=== PATIENT | male | born 1980 | race African-American/Black ===

== ENCOUNTER 2017-10-30 01:02 | Emergency (ER) | payer MEDICARE ==
[2016-02-11 10:39] VITALS: BMI 26.3
[~2017-10-30 01:02] MED LIST: ALDACTONE25 MG PO; BACTRIM DS TABL1 TAB; BAYER CHEWABLE81 MG PO; BRILINTA90 MG PO; CATAPRES0.2 MG PO; CATAPRES0.3 MG PO; CORDARONE200 MG PO; COUMADIN10 MG PO; COUMADIN5 MG PO; CYCLOBENZAPRINE10 MG PO; HYDRALAZINE HC100 MG PO; HYDRALAZINE HCL50 MG PO; HYDROCODONE-APA1 TAB PO; LASIX80 MG PO; LISINOPRIL10 MG PO; LOVENOX30 MG/0.3 SC; LOVENOX40 MG/0.4 SC; NORCO 7.5/325 T1 TA1; NORMODYNE / TR100 MG PO; NORMODYNE / TR200 MG PO; NORMODYNE / TR300 MG PO; PHOSLO667 MG PO; PROTONIX I40 MG/VIAL PO; TRANDATE100 MG PO; VIAGRA100 MG PO; XANAX0.5 MG PO
[2017-10-30 01:51] LABS: HEMATOCRIT 36.2 % (42.0-54.0); HEMOGLOBIN 12.3 g/dL (13.5-17.5); MCH 31.2 pg (26.0-34.0); MCV 91.9 fL (80.0-100.0); MEAN PLATELET VOLUME 10.6 fL (7.4-10.4); PLATELET COUNT 152 10x3/uL (130-400); RBC 3.94 10x6/uL (4.20-6.10); RDW 16.6 % (11.5-14.5); WBC 4.4 10x3/uL (4.8-10.8)
[2017-10-30 01:59] LABS: ALBUMIN 3.4 g/dL (3.4-5.0); ANION GAP 21.7 mmol/L (8-16); BILIRUBIN - TOTAL 1.1 mg/dL (0.2-1.3); CALCIUM 8.1 mg/dL (8.5-10.1); CARBON DIOXIDE 22.9 mmol/L (21.0-32.0); CREATININE - SERUM 10.8 mg/dL (0.6-1.3); POTASSIUM - SERUM 4.6 mmol/L (3.5-5.1); PROTEIN - SERUM 7.8 g/dL (6.4-8.2)
[2017-10-30 02:00] LABS: APPEARANCE HAZY (CLEAR); BILIRUBIN NEGATIVE (NEGATIVE); COLOR YELLOW (YELLOW); GLUCOSE NEGATIVE (NEGATIVE); KETONE NEGATIVE (NEGATIVE); NITRITE NEGATIVE (NEGATIVE); PROTEIN 3+ mg/dL (NEGATIVE); SPECIFIC GRAVITY 1.015 (1.005-1.020); UROBILINOGEN NORMAL (NORMAL)
[2017-10-30 02:01] LABS: BACTERIA MODERATE /hpf (NONE SEEN); EPITHELIAL CELLS 0-5 /hpf (0-5); RED CELLS - URINE 0-5 /hpf (0-5)
== END 2017-10-30 02:33 | disposition home or self-care (01) ==
LOC: D.ER 01:02
PROVIDERS: Family Medicine
DX: J11.1 Influenza due to unidentified influenza virus with other respiratory manifestations (principal); R50.9 Fever, unspecified; R06.02 Shortness of breath; M79.1 Myalgia; R53.83 Other fatigue; R51 Headache; F17.200 Nicotine dependence, unspecified, uncomplicated; I48.91 Unspecified atrial fibrillation

== ENCOUNTER 2018-04-09 11:36 | Inpatient (IN) | payer MEDICARE ==
[~2018-04-09] VITALS: Ht 188 cm; Wt 89.6 kg
--- NOTE | ~2018-04-09 | EC ---
PATIENT:ELIZABETH FIELDS DATE OF SERVICE: 04/09/18 SEX: M MEDICAL RECORD: [id number] DATE OF : [birth year] LOCATION:[place] [address] AGE OF PATIENT: 37 ADMISSION DATE: 04/09/18 REFERRING PHYSICIAN: INTERPRETING PHYSICIAN: SHERIF BUSH MD ECHOCARDIOGRAM REPORT ECHO CHARGES 4 ECHO COMPLETE Date: 04/10 CLINICAL DIAGNOSIS: AVR ECHOCARDIOGRAPHIC MEASUREMENTS (adult normal given) AC root (d.<3.7cm) 4.1 cm LV Septum d (<1.2 cm> 2.0 cm Valve Excursion 1.4 cm LV Septum (systole) 2.8 cm Left Atria (s.<4.0cm> 5.2 cm LVPW d(<1.2cm) 2.3 cm RV (d.<2.3cm) 3.4 cm LVPW (sytole) 3.1 cm LV diastole(<5.6CM) 4.8 cm MV E-F(>70mm/sec) cm LV systole 2.5 cm LVOT Diameter 2.3 cm MV exc.(>10mm) cm Est.ejection fraction (50-75%) % DOPPLER: LVIT cm/sec A cm/sec E 205 cm/sec LA cm/sec RVSP 50.0 mmHg LVOT 100 cm/sec AOP1/2T m/s Asc. Ao 182 cm/sec RVOT 53.0 cm/sec RA cm/sec PA 82.0 cm/sec AV Gradient Peak 13.3 mmHg AV Mean 6.3 mmHg AV Area 2.5 cm MV Gradient Peak 24.1 mmHg MV Mean 6.3 mmHg MV Area cm COMMENTS: Human Relations Professor: Renay DAYOE Jazz Musician: 1 Dr. Bush TAPE# PACS Pericardial Effusion N DATE OF SERVICE: 04/11/2018 PROCEDURE: Echocardiogram. FINDINGS: 1. Left ventricular chamber size is within normal limits. Left ventricular systolic function is normal. Overall ejection fraction estimated at 55%. 2. Left atrium is enlarged at 5.2 cm. Right atrium and right ventricle chamber sizes are severely dilated. 3. Valvular structures: Aortic valve is replaced with a mechanical prosthesis ECHOCARDIOGRAM REPORT [id number] ELIZABETH FIELDS with normal structure and function in this position. The remaining valvular structures have normal structure and motion. 4. Doppler interrogation reveals mild aortic insufficiency, moderate mitral regurgitation, moderate tricuspid regurgitation, no other valvular insufficiency or stenosis and pulmonary systolic pressure is elevated estimated 50 mmHg. 5. No evidence of pericardial effusion or left ventricular thrombus. TRANSINT:[id number] Voice Confirmation ID: [id number] DOCUMENT ID: [id number] SHERIF BUSH MD at 1713 CC: [id number] DICTATION DATE: 04/11/18 1236 FISHING VESSEL CAPTAIN: 04/11/18 1241 ADM IN [place] [address] [place] [address]
--- NOTE | ~2018-04-09 | MORECARE ---
CASE MANAGEMENT DISCHARGE SUMMARY PATIENT: ELIZABETH FIELDS UNIT: [id number] ADM DATE: 04/09/18 AGE: 37 : [birth year] SEX: M ROOM/BED: D.2310 AUTHOR: CASE, DECAL CUTTER PHYSICIAN: REFERRING PHYSICIAN: BEBE HAIR MD DATE OF SERVICE: 04/09/18 Discharge Plan Patient Name: ELIZABETH FIELDS Facility: [facility]:[place] : 1980 Planned Disposition: Anticipated Discharge Date: Discharge Date: Expected LOS: Initial Reviewer: [email or web address] Initial Review Date: 04/09/2018 Generated: 04/15/18 9:21 am Patient Name: ELIZABETH FIELDS Page 20201 All edits/amendments must be made on the electronic document DICTATION DATE: 04/15/18820 EMPLOYMENT OFFICE CLERK: 04/15/18820 RPT#: [id number] DC DATE: STATUS: ADM IN [facility] [address] [place] [address] END OF REPORT
--- NOTE | ~2018-04-09 | OP ---
PATIENT NAME: ELIZABETH FIELDS MEDICAL RECORD: [id number] :[birth year] LOCATION:.[facility] D.2310 ADMISSION DATE:04/09/18 SURGEON: VANCE ROMERO MD DATE OF OPERATION: 04/12/2018 PREOPERATIVE DIAGNOSES: 1. End-stage renal disease, dependence on hemodialysis. 2. Infected draining right forearm PTFE loop AV fistula. 3. Coronary artery as well as severe valvular heart disease. POSTOPERATIVE DIAGNOSES: 1. End-stage renal disease, dependence on hemodialysis. 2. Infected draining right forearm PTFE loop AV fistula. 3. Coronary artery as well as severe valvular heart disease. INTRAOPERATIVE COMPLICATION: Following induction of anesthesia and prepping and draping the patient for surgery, he suffered a cardiac arrest. The operation was terminated at that point before the first incision and the patient was resuscitated in the operating room for about an hour and half before being successfully transferred to ICU and placed on the ventilator. At this point, it is unknown whether the patient will survive much less whether or when he can be returned to the operating room for the procedure we had planned for today. TRANSINT:[id number] Voice Confirmation ID: [id number] DOCUMENT ID: [id number] VANCE ROMERO MD at 1451 CC: [id number] DICTATION DATE: 04/14/18 1117 DAM TENDER: 04/14/18 1155 ADM IN [place] [address] [place] [address]
--- NOTE | ~2018-04-09 | PN ---
PATIENT:ELIZABETH FIELDS MEDICAL RECORD: [id number] LOCATION:D[facility] D.231 ADMISSION DATE: 04/09/18 PROGRESS NOTE DATE OF SERVICE: 04/16/2018 SUBJECTIVE: This is a 37-year-old man who has had a history of a stage IV end-stage renal failure. 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 The patient has not been responsive, but neuromuscular testing did not show any limitation. This indicates no brain . The patient has been having intermittent RVS, atrial fib and SVT, treated with IV beta dimitrios and now with p.o. beta dimitrios. Labs have been drawn and is pending. He does have some low-grade temperature. No mucus secretions. PHYSICAL EXAMINATION: GENERAL: A young man who is in no acute distress, unresponsive. VITAL SIGNS: Temperature 99.9, heart rate of 114, respiratory rate of 20, blood pressure 146/70. SHEENT: Unremarkable. NECK: Supple, no adenopathy. Trachea is midline. CHEST: Clear, symmetric. No crackles or wheezes. HEART: Shows no jugular venous distention, murmur or gallop. ABDOMEN: Benign, without any tenderness. EXTREMITIES: No clubbing, cyanosis or edema. LABORATORY DATA: White count of 7.0, hemoglobin of 9.6 and platelet count was 115,000. Chemistry is remarkable for potassium 5.4, carbon dioxide 28. Estimated GFR is 5. Arterial blood gas: pH of 7.48, pCO2 of 34, pO2 is 114. Chest x-ray shows stable pulmonary vascular congestion. ASSESSMENT: 1. Cardiopulmonary arrest with possible anoxic encephalopathy. No evidence of brain . 2. End-stage renal disease, on dialysis. 3. Anemia secondary to renal disease. DISCUSSION: NEUROPSYCHIATRY: The patient is unresponsive secondary to hypoxic brain injury. No focal signs. CARDIOVASCULAR: The patient has been having tachycardia which may be secondary to a brain injury. PULMONARY/RESPIRATORY: The patient is on ventilator. There is no evidence of aspiration pneumonia. He, however, has some congestion. GASTROINTESTINAL: There is no evidence of GI bleed, ulcers, bleeding. The patient is currently n.p.o. PLAN: 1. Ventilator support. 2. Beta dimitrios control, tachycardia. 3. Continue antibiotics and stop in 5 days if there is no evidence of infection. Do procalcitonin. TRANSINT:[id number] Voice Confirmation ID: [id number] DOCUMENT ID: [id number] PROGRESS NOTE [id number] ELIZABETH FIELDS AUGUSTINE K at 1307 CC: [id number] DICTATION DATE: 04/16/18 1540 STRUCTURAL STEEL IRONWORKER: 04/16/182 DIS IN 04/16/18 [facility] [address] [place] [id number]
--- NOTE | ~2018-04-09 | HEMODYNAMI ---
PATIENT:LEIZABETH FIELDS MEDICAL RECORD: [id number] : 76 LOCATION:[facility] D.2101 ADMISSION DATE: 04/09/18 Generatedon:04/10/201811:28 Patient name: ELIZABETH FIELDS Patient #: [id number] SSN: : 1980 Date of study: 04/10/2018 Page: Of Hemodynamic Procedure Report Patient Data Patient Demographics Procedure consent was obtained First Name: ELIZABETH Gender: Male Last Name: DIAMOND : 1980 [facility] Initial: L Age: 37 year(s) Patient #: [id number] Race: Black Additional ID: [id number] Contact details Address: [address] [place] [address] [address]REET State: [place] City: [place] Zip code: [address] Past Medical History Allergies Allergen Reaction Date Comments Reported Other allergy 08/27/2014 Minoxidil Other allergy 04/10/2018 MINOXIDIL Admission Admission Data Admission Date: 04/09/2018 Admission Time: 11:36 Room #: D.2101 Procedure Procedure Types Cath Procedure Peripheral Cath Diagnostic Procedure Miscellaneous PARACENTESIS WITH GUIDE Procedure Description Procedure Date Procedure Date: 04/10/2018 Procedure Start Time: 10:40 Procedure Staff Name Function Harsh Rockwell MD Performing Physician Harsha Weber RT Monitor Becky Last RT Scrub Ora Pack RN Nurse Procedure Medications Medication Administration Route Dosage Versed I.V. 2 mg Fentanyl I.V. 100 mcg Hemodynamics Rest Pre Cath Intra NCS Post Cath Vital Signs Time Heart Resp SPO2 etCO2 NIBP (mmHg) Rhythm Pain Sedation Rate (ipm) (%) (mmHg) Status Level (bpm) 9:56:09 83 16 97 0 138/100(115) NSR 0 (11) 10(A) , No pain 10:00:23 84 8 96 0 139/107(130) NSR 0 (11) 10(A) , No pain 10:04:38 85 24 94 0 144/109(122) NSR 0 (11) 10(A) , No pain 10:08:52 85 16 97 0 145/102(122) NSR 0 (11) 10(A) , No pain 10:13:09 76 20 93 0 142/106(125) NSR 0 (11) 10(A) , No pain 10:17:23 76 18 93 0 149/115(130) NSR 0 (11) 10(A) , No pain 10:21:42 84 11 95 0 149/109(124) NSR 0 (11) 10(A) , No pain 10:25:58 75 15 96 0 149/103(121) NSR 0 (11) 10(A) , No pain 10:30:11 78 10 97 0 150/110(127) NSR 0 (11) 10(A) , No pain 10:34:30 85 24 99 1.5 147/112(142) NSR 0 (11) 10(A) , No pain 10:38:46 80 12 99 1.5 154/116(133) NSR 0 (11) 10(A) , No pain 10:43:06 79 10 99 0.7 156/123(136) NSR 0 (11) 10(A) , No pain 10:47:24 82 17 98 2.2 146/98(126) NSR 0 (11) 10(A) , No pain 10:51:40 83 18 96 1.5 134/101(130) NSR 0 (11) 10(A) , No pain 10:55:50 83 10 96 1.5 141/105(123) NSR 0 (11) 10(A) , No pain 11:00:04 81 10 96 1.5 137/98(128) NSR 0 (11) 10(A) , No pain 11:04:14 84 9 97 0.7 136/106(118) NSR 0 (11) 10(A) , No pain 11:08:21 80 11 97 1.5 138/100(116) NSR 0 (11) 10(A) , No pain 11:12:33 77 11 97 2.2 133/99(113) NSR 0 (11) 10(A) , No pain 11:16:43 80 11 97 2.2 137/92(121) NSR 0 (11) 10(A) , No pain 11:20:55 86 19 98 2.2 134/100(120) NSR 0 (11) 10(A) , No pain 11:25:05 80 15 99 1.5 144/99(116) NSR 0 (11) 10(A) , No pain Medications Time Medication Route Dose Verified Delivered Reason Notes Effectivene ss by by 10:45:58 Versed I.V. 2 mg Harsh Payan for Moiz Pack RN sedation 10:46:10 Fentanyl I.V. 100 Harsh Payan for [facility] Moiz Pack RN sedation MD Procedure Log Time Note 9:48:00 Harsha Weber RT (R) (CV) sent for patient. Start room use. 9:48:09 Time tracking: Regular hours (M-F 7:00 - 5:00) 9:48:15 Plan of Care:Hemodynamics will remain stable., Cardiac rhythm will remain stable., Comfort level will be maintained., Respiratory function will remain adequate., Patient/ family verbilizes understanding of procedure., Procedure tolerated without complication., Recovers from procedure without complications.. 9:48:20 Patient arrived from Med II to IR. Patient remains on bed/stretcher for procedure. 9:48:22 Correct patient and procedure confirmed by team. 9:48:24 Signed procedure consent form obtained from patient. 9:48:25 ECG and BP/O2 sat monitors applied to patient. 9:48:26 Full Disclosure recording started 9:48:27 - 9:48:31 H&P Date Dictated: 04/10/2018 Within 30 days and on chart.. 9:48:32 Pre-procedure instructions explained to patient. 9:48:32 Pre-op teaching completed and patient verbalized understanding. 9:48:35 Family unavailable. 9:48:36 Patient NPO since Midnight. 9:48:55 Patient allergic to Other allergyMINOXIDIL 9:48:58 Is patient on blood thinner?Yes 9:49:04 ACC The patient was administered the following blood thiners within the last 24 hours: ACCHeparin 9:49:38 HEPARIN TURNED OFF 8-1-18 A/M 9:49:43 Patient diabetic? No. 9:49:45 - 9:49:45 ----Pre-sedation anethsthesia assessment.---- 9:49:49 Previous problem with sedation/anesthesia? No ? 9:49:51 Snore? Yes 9:49:52 Sleep apnea? Yes 9:49:53 Deviated septum? No 9:49:55 Opens mouth fully? Yes 9:49:56 Sticks out tongue? Yes 9:49:58 Airway obstruction? No ? 9:50:01 Dentures? No ? 9:50:22 IV patent on arrival in left hand with 0.9% NaCl at [facility]. 9:50:24 Sharps counted by scrub and verified by R.N. 9:50:24 Alarms reviewed by RRose N. 9:50:28 Right abdomen area was prepped with chlora-prep and draped in sterile fashion 9:55:05 Vital chart was started 10:39:30 Physician arrived 10:39:30 --------ALL STOP TIME OUT------ 10:39:31 Final Timeout: patient, procedure, and site verified with staff and physician. All members of the team are in agreement. 10:39:34 Right abdomen site verified by team. 10:39:41 Sedation plan: IV Moderate Sedation Medication:Versed, Fentanyl 10:40:10 Procedure started. 10:40:15 Local anesthetic to Abdominal area with Lidocaine 1% by Harsh Rockwell MD.INITIAL ACCESS ONLY 10:40:16 [id number] 8FR CATH DRAIN TRAY opened to sterile field. 10:40:17 CONNECTING TUBE FOR DRAINAGE BAG ([id number]) opened to sterile field. 10:45:58 Versed 2 mg I.V. was administered by Ora Ramone RN; for sedation; 10:46:10 Fentanyl 100 mcg I.V. was administered by Ora Pack RN; for sedation; 11:15:53 Procedure ended.(Physican Out) 11:16:30 Tegaderm 4 x 4 ([id number]) opened to sterile field. 11:16:33 Sharps counted by scrub and verified by R.N. 11:16:36 Insertion/operative site no bleeding no hematoma. 11:16:43 Post-op/insertion site Right Abdominal area dressed using a 4 x 4 and Tegaderm. 11:16:50 Post Abdominal area:stable 11:17:13 Post procedure instruction explained to patient.Patient verbalizes understanding. 11:17:22 Procedure and supply charges have been captured, reviewed, submitted an d are correct. 11:27:29 Report given to Med II. 11:27:39 Patient transfered to Med II with Bed. 11:28:02 Vital chart was stopped Device Usage Item Name Manufacture Quantity Catalog Hospital Part Current Mini mal Lot# / Number Charge Number Stock Stock Serial# Code [id number] CareFusion 1 [id number] 8FR CATH DRAIN TRAY CONNECTING TUBE [place] 1 [id number] FOR DRAINAGE Scientific BAG ([id number]) Tegaderm 4 x 4 3M 1 [id number] ([id number]) Signature Audit [place] Stage Time Signature Unsigned Intra-Procedure 04/10/2018 Harsha 11:28:00 AM Gus RT (R) (CV) Signatures Monitor : Harsha Signature : Gus RT Date : Time : [place] [id number] [place] [address]
--- NOTE | ~2018-04-09 | PN ---
PATIENT:ELIZABETH FIELDS MEDICAL RECORD: [id number] LOCATION:[facility] D.231 ADMISSION DATE: 04/09/18 PROGRESS NOTE DATE OF SERVICE: 04/15/2018 HISTORY OF PRESENT ILLNESS: This is a 37-year-old male who has had a history of chronic renal failure. The patient was felt to be overloaded with fluids and the possible start of dialysis was contemplated. The patient was sent for AV shunt. It is unclear what happened, the patient had a cardiopulmonary arrest, had bradycardia, asystole. The patient was successfully resuscitated and brought to the intensive care unit. The patient's mental status has been subpar, though he is breathing about the ventilator. Consideration has been made for possible anoxic encephalopathy. The patient was scheduled for an MRI of the brain today but was noted to have a foreign body in the chest and this was cancelled. Nephrology was called and they ordered a brain flow study with nuclear medicine. He has some movements in the right, possibly reflex. He has also had tachycardia. There is no fever or chills. Family members have been around the bedside today. PHYSICAL EXAMINATION: GENERAL: Reveals a young man who is in no acute distress, resting on the ventilator. VITAL SIGNS: Temperature up to 100.8, heart rate of 104, respiratory rate of 20, blood pressure 128/68 with a saturation of 99%. SHEENT: Unremarkable. Pupils are equal. There is no response to painful stimuli. NECK: Supple. There is no adenopathy. LUNGS: Clear. Symmetric, no wheezes or crackles. HEART: Shows no jugular venous distention. No murmur or gallops. ABDOMEN: Benign, without any tenderness. EXTREMITIES: No clubbing, cyanosis or edema. LABORATORY DATA: Show white count 9.2, hemoglobin 8.8, platelet count is 101,000. Chemistries remarkable for a sodium of 143, potassium 4.4, BUN 57, and creatinine is 10.2. Coronary angiogram showed [id number] congestive heart failure. Airspace disease in the dependent portions of both lungs. Chest x-ray showed improved multifocal airspace disease predominantly in the lower lobes. Small pleural effusion. ASSESSMENT: 1. Jfgka-ma-sfvwuks renal failure stage. 2. Hypovolemia with pulmonary edema, improving. 3. Cardiopulmonary arrest, etiology unknown. This could be from an underlying coronary artery disease secondary to renal failure. 4. Anemia. There is probably chronic secondary to renal failure. NEUROLOGY/PSYCHIATRY: The patient's mental status is nil. The patient was unresponsive. Movements there could be reflex. PROGRESS NOTE [id number] ELIZABETH FIELDS CARDIOVASCULAR: The patient's troponin was elevated. Pulmonary angiogram did not show any coronary artery disease. This could have been due to cardiopulmonary resuscitation or demand ischemia. PULMONARY/RESPIRATORY: The patient is on bronchodilators, on the ventilator. PLAN: 1. Continue bronchodilators. 2. Continue ventilator. 3. Assess the severity of the brain damage from hypoxia. TRANSINT:[id number] Voice Confirmation ID: [id number] DOCUMENT ID: [id number] CIRA PARKER at 1307 CC: [id number] DICTATION DATE: 04/15/181728 PHLEBOTOMIST ASSOCIATE: 04/16/18 0120 DIS IN 04/16/18 [facility] [address] [place] [address]
--- NOTE | ~2018-04-09 | CN ---
PATIENT NAME:ELIZABETH FIELDS MEDICAL RECORD: [id number] : 76 LOCATION:[facility] ADMIT DATE: 04/09/18 ACCOUNT: [id number] CONSULTING PHYSICIAN: LIZZY FOX MD REFERRING PHYSICIAN: BEBE HAIR MD DATE OF CONSULTATION: 04/13/2018 HISTORY OF PRESENT ILLNESS: A 37-year-old gentleman well known to me with a history of coronary artery disease, status post stenting, has a history of valvular heart disease, status post mitral valve repair, aortic valve replacement. Was in the OR, had bradycardia, progression to asystole. Code was called. I was asked to see him in the OR itself. Currently rhythm has been able to be restored with multiple episodes of pressors and atropine. Last echocardiograph study showed normal valve function with normal LV function. PAST MEDICAL HISTORY: Includes; 1. History of hypertension. 2. Hyperlipidemia. 3. Chronic renal insufficiency, on dialysis. 4. Aortic valve disease. 5. Mitral valve disease. 6. Hypertension, difficult to control. ALLERGIES: MINOXIDIL. HOME MEDICATIONS: Typically include clonidine 0.3 t.i.d., labetalol 600 b.i.d., lisinopril 10 every day. SOCIAL HISTORY: Quit smoking a few years back. No illicit drug use. Good family support. REVIEW OF SYSTEMS: Unobtainable at this point. PHYSICAL EXAMINATION: GENERAL: Intubated and sedated. VITAL SIGNS: Heart rate is 90 and irregular, sinus rhythm. Blood pressure 116/72. HEENT: Normocephalic, atraumatic. NECK: No bruits noted. HEART: Distant heart tones, but regular. No obvious gallops. LUNGS: Diminished breath sounds, adequate excursion. ABDOMEN: Soft, nontender. EXTREMITIES: Pulses 2+. No edema. NEUROLOGIC: Unobtainable. IMPRESSION: Not sure if this is a primary bradyarrhythmia or some untoward reaction to anesthetic agents. Pressure and pulse are stable at this point. Continue supportive measures. Further recommendations will be based on clinical course. TRANSINT:[id number] Voice Confirmation ID: [id number] DOCUMENT ID: [id number] CONSULT REPORT [id number] ELIZABETH FIELDS LIZZY FOX MD at 4566 CC: [id number] DICTATION DATE: 04/13/18 1005 SCARF GLUER: 04/13/18 1208 ADM IN [facility] [address] [place] [address]
[2018-04-09] MEDS ORDERED: TUMS X-STR300 MG PO (16:01)
[2018-04-09] MEDS ORDERED: XANAX2 MG PO (16:03)
[2018-04-09 16:10] LABS: BASOPHILS 0.5 % (0-2); EOSINOPHILS 11.3 % (0-7); HEMATOCRIT 30.7 % (42.0-54.0); HEMOGLOBIN 10.4 g/dL (13.5-17.5); IMMATURE GRANULOCYTES 0.2 % (0-5); LYMPHOCYTES 18.3 % (15-50); MCH 31.8 pg (26.0-34.0); MCHC 33.9 g/dL (31.0-37.0); MCV 93.9 fL (80.0-100.0); MEAN PLATELET VOLUME 10.4 fL (7.4-10.4); MONOCYTES 9.2 % (2-11); NEUTROPHILS 60.5 % (40-80); RBC 3.27 10x6/uL (4.20-6.10); WBC 5.7 10x3/uL (4.8-10.8)
[2018-04-09 16:14] LABS: PLATELET COUNT 197 10x3/uL (130-400)
[2018-04-09 16:36] LABS: APTT 32.4 SECONDS (22.8-39.4); INR 1.2 (0.85-1.17); PROTIME 14.8 SECONDS (11.6-15.0)
[2018-04-09 16:48] LABS: ANION GAP 13.4 mmol/L (8-16); BILIRUBIN - DIRECT 0.28 mg/dL (0.00-0.30); BILIRUBIN - INDIRECT 0.42 mg/dL (0.00-1.00); BILIRUBIN - TOTAL 0.7 mg/dL (0.2-1.3); CALCIUM 7.5 mg/dL (8.5-10.1); CARBON DIOXIDE 28.8 mmol/L (21.0-32.0); CREATININE - SERUM 7.7 mg/dL (0.6-1.3); POTASSIUM - SERUM 3.2 mmol/L (3.5-5.1); PROTEIN - SERUM 7.6 g/dL (6.4-8.2)
[2018-04-09 17:59] VITALS: BP 148/83; BMI 27.2
[2018-04-09 20:30] VITALS: BP 135/104
[2018-04-10] VITALS (8 sets, daily range): BP systolic 116–154; BP diastolic 79–104; Ht 188 cm; Wt 89.6 kg
[2018-04-10 06:03] LABS: BASOPHILS 0.6 % (0-2); EOSINOPHILS 12.6 % (0-7); HEMATOCRIT 29.9 % (42.0-54.0); HEMOGLOBIN 10.1 g/dL (13.5-17.5); IMMATURE GRANULOCYTES 0.2 % (0-5); LYMPHOCYTES 19.6 % (15-50); MCH 31.6 pg (26.0-34.0); MCHC 33.8 g/dL (31.0-37.0); MCV 93.4 fL (80.0-100.0); MEAN PLATELET VOLUME 10.2 fL (7.4-10.4); MONOCYTES 11.2 % (2-11); NEUTROPHILS 55.8 % (40-80); PLATELET COUNT 196 10x3/uL (130-400); WBC 5.2 10x3/uL (4.8-10.8)
[2018-04-10 06:30] LABS: % SATURATION 43 % (15-55); IRON 89 ug/dl (35-150); TOTAL IRON BIND CAPACITY 204 ug/dl (260-445); UNSAT IRON BIND CAPACITY 115 ug/dl (150-375)
[2018-04-10 06:38] LABS: ALBUMIN 2.8 g/dL (3.4-5.0); BILIRUBIN - TOTAL 0.67 mg/dL (0.2-1.3); CALCIUM 7.5 mg/dL (8.5-10.1); CARBON DIOXIDE 24.6 mmol/L (21.0-32.0); CHOL - HDL RATIO 1.9 ratio (2.3-4.9); CREATININE - SERUM 8.9 mg/dL (0.6-1.3); LDL-HDL RATIO 0.9 ratio (1.5-3.5); MAGNESIUM - SERUM 2.1 mg/dL (1.8-2.4); PHOSPHOROUS 7.7 mg/dL (2.5-4.9); PRE-ALBUMIN 21.7 mg/dL (18.0-35.7); PROTEIN - SERUM 7.1 g/dL (6.4-8.2)
[2018-04-10 06:39] LABS: ANION GAP 17.2 mmol/L (8-16); POTASSIUM - SERUM 3.8 mmol/L (3.5-5.1)
[2018-04-10 08:48] LABS: INR 1.17 (0.85-1.17); PROTIME 14.4 SECONDS (11.6-15.0)
[2018-04-10 08:49] LABS: APTT 68.1 SECONDS (22.8-39.4)
[2018-04-11 00:58] VITALS: BP 117/84
[2018-04-11 05:15] VITALS: BP 122/96
[2018-04-11 05:46] LABS: BASOPHILS 0.4 % (0-2); EOSINOPHILS 10.1 % (0-7); HEMATOCRIT 29.5 % (42.0-54.0); HEMOGLOBIN 9.8 g/dL (13.5-17.5); IMMATURE GRANULOCYTES 0.2 % (0-5); LYMPHOCYTES 20.2 % (15-50); MCHC 33.2 g/dL (31.0-37.0); MCV 93.4 fL (80.0-100.0); MEAN PLATELET VOLUME 10.9 fL (7.4-10.4); MONOCYTES 9.1 % (2-11); PLATELET COUNT 181 10x3/uL (130-400); RBC 3.16 10x6/uL (4.20-6.10); RDW 14.8 % (11.5-14.5); WBC 5.3 10x3/uL (4.8-10.8)
[2018-04-11 06:04] LABS: ALBUMIN 2.7 g/dL (3.4-5.0); ALKALINE PHOSPHATASE 96 U/L (46-116); ALT (SGPT) 17 U/L (10-68); CALC OSMOLALITY 282 mosm/kg (275-300); CALCIUM 7.5 mg/dL (8.5-10.1); CARBON DIOXIDE 27.5 mmol/L (21.0-32.0); CHLORIDE - SERUM 99 mmol/L (98-107); CREATININE - SERUM 10.5 mg/dL (0.6-1.3); GLUCOSE 94 mg/dL (74-106); PROTEIN - SERUM 6.2 g/dL (6.4-8.2); SODIUM 137 mmol/L (136-145); UREA NITROGEN 38 mg/dL (7-18); eGFR NON AFRICAN AMERICAN 6 mL/min (90-120)
[2018-04-11 06:05] LABS: BILIRUBIN - TOTAL < 0.10 mg/dL (0.2-1.3)
[2018-04-11 07:41] VITALS: BP 132/95
[2018-04-11 10:21] LABS: HEPATITIS C ANTIBODY 0.2 (0.0-0.9)
[2018-04-11 14:27] LABS: EBV - EARLY ANTIGEN AB IGG <9.0 U/mL (0.0-8.9); EBV VIRAL CAPSID AB IGM <36.0 U/mL (0.0-35.9)
[2018-04-11 15:28] LABS: ALPHA FETOPROTEIN -(TUMOR MRK) 5.4 ng/mL (0.0-8.3)
[2018-04-11 16:08] VITALS: BP 122/88
[2018-04-11 20:00] VITALS: BP 136/92
[2018-04-12] VITALS (21 sets, daily range): BP systolic 84–173; BP diastolic 64–131
[2018-04-12 05:20] LABS: BASOPHILS 0.4 % (0-2); EOSINOPHILS 17.7 % (0-7); HEMATOCRIT 31.6 % (42.0-54.0); HEMOGLOBIN 10.6 g/dL (13.5-17.5); IMMATURE GRANULOCYTES 0.2 % (0-5); LYMPHOCYTES 17.7 % (15-50); MCH 31.5 pg (26.0-34.0); MCHC 33.5 g/dL (31.0-37.0); MCV 93.8 fL (80.0-100.0); MEAN PLATELET VOLUME 10.4 fL (7.4-10.4); MONOCYTES 15.3 % (2-11); NEUTROPHILS 48.7 % (40-80); PLATELET COUNT 175 10x3/uL (130-400); RBC 3.37 10x6/uL (4.20-6.10); RDW 14.8 % (11.5-14.5); WBC 4.6 10x3/uL (4.8-10.8)
[2018-04-12 05:30] LABS: ALBUMIN 2.6 g/dL (3.4-5.0); ANION GAP 15.3 mmol/L (8-16); BILIRUBIN - TOTAL 0.74 mg/dL (0.2-1.3); CARBON DIOXIDE 28.3 mmol/L (21.0-32.0); CREATININE - SERUM 8.3 mg/dL (0.6-1.3); PHOSPHOROUS 6.4 mg/dL (2.5-4.9); POTASSIUM - SERUM 3.6 mmol/L (3.5-5.1); PROTEIN - SERUM 6.5 g/dL (6.4-8.2)
[2018-04-12 07:16] LABS: INR 1.32 (0.85-1.17); PROTIME 15.9 SECONDS (11.6-15.0)
[2018-04-12 07:38] LABS: INR 1.16 (0.85-1.17); PROTIME 14.4 SECONDS (11.6-15.0)
[2018-04-12 16:27] LABS: BASOPHILS 0.4 % (0-2); EOSINOPHILS 5.2 % (0-7); HEMATOCRIT 32.6 % (42.0-54.0); HEMOGLOBIN 10.9 g/dL (13.5-17.5); LYMPHOCYTES 29.2 % (15-50); MCH 32.7 pg (26.0-34.0); MCHC 33.4 g/dL (31.0-37.0); MEAN PLATELET VOLUME 10.7 fL (7.4-10.4); MONOCYTES 8.5 % (2-11); NEUTROPHILS 54.7 % (40-80); PLATELET COUNT 148 10x3/uL (130-400); RBC 3.33 10x6/uL (4.20-6.10); RDW 15.1 % (11.5-14.5)
[2018-04-12 16:30] LABS: MCV 97.9 fL (80.0-100.0)
[2018-04-12 16:34] LABS: INR 1.42 (0.85-1.17); PROTIME 16.9 SECONDS (11.6-15.0)
[2018-04-12 16:35] LABS: APTT 50.2 SECONDS (22.8-39.4)
[2018-04-12 16:36] LABS: ANION GAP 15.8 mmol/L (8-16); CALCIUM 7.4 mg/dL (8.5-10.1); CARBON DIOXIDE 25.2 mmol/L (21.0-32.0); CREATININE - SERUM 8.1 mg/dL (0.6-1.3)
[2018-04-12 19:46] LABS: ALBUMIN 2.3 g/dL (3.4-5.0); ALKALINE PHOSPHATASE 140 U/L (46-116); BILIRUBIN - TOTAL 1.02 mg/dL (0.2-1.3); CALCIUM 8.1 mg/dL (8.5-10.1); CARBON DIOXIDE 28.9 mmol/L (21.0-32.0); CHLORIDE - SERUM 103 mmol/L (98-107); CREATININE - SERUM 8.7 mg/dL (0.6-1.3); GLUCOSE 116 mg/dL (74-106); POTASSIUM - SERUM 4.8 mmol/L (3.5-5.1); PROTEIN - SERUM 6.2 g/dL (6.4-8.2); SODIUM 143 mmol/L (136-145); eGFR NON AFRICAN AMERICAN 7 mL/min (90-120)
[2018-04-12 19:49] LABS: ALT (SGPT) 36 U/L (10-68); CALC OSMOLALITY 291 mosm/kg (275-300); UREA NITROGEN 29 mg/dL (7-18)
[2018-04-12 19:59] LABS: BASOPHILS 0.1 % (0-2); HEMATOCRIT 32.6 % (42.0-54.0); HEMOGLOBIN 10.9 g/dL (13.5-17.5); IMMATURE GRANULOCYTES 0.8 % (0-5); LYMPHOCYTES 6.1 % (15-50); MCHC 33.4 g/dL (31.0-37.0); MCV 95.6 fL (80.0-100.0); MEAN PLATELET VOLUME 10.1 fL (7.4-10.4); MONOCYTES 0.5 % (2-11); NEUTROPHILS 88.5 % (40-80); PLATELET COUNT 154 10x3/uL (130-400); RBC 3.41 10x6/uL (4.20-6.10); WBC 8.3 10x3/uL (4.8-10.8)
[2018-04-12 20:02] LABS: CKMB 13.7 U/L (0.0-3.6); CREATINE KINASE 418 UL (21-232); MAGNESIUM - SERUM 2.1 mg/dL (1.8-2.4)
[2018-04-12 20:04] LABS: TROPONIN-I 0.906 ng/mL (0.000-0.060)
[2018-04-13] VITALS (20 sets, daily range): BP systolic 144–182; BP diastolic 75–105
[2018-04-13 04:44] LABS: BASOPHILS 0.1 % (0-2); EOSINOPHILS 0.2 % (0-7); HEMATOCRIT 29.9 % (42.0-54.0); HEMOGLOBIN 10.1 g/dL (13.5-17.5); IMMATURE GRANULOCYTES 0.3 % (0-5); LYMPHOCYTES 2.1 % (15-50); MCH 31.3 pg (26.0-34.0); MCHC 33.8 g/dL (31.0-37.0); MEAN PLATELET VOLUME 10.8 fL (7.4-10.4); NEUTROPHILS 92.3 % (40-80); PLATELET COUNT 159 10x3/uL (130-400); RBC 3.23 10x6/uL (4.20-6.10); RDW 14.7 % (11.5-14.5)
[2018-04-13 05:02] LABS: MCV 92.6 fL (80.0-100.0); WBC 17.4 10x3/uL (4.8-10.8)
[2018-04-13 06:08] LABS: ALBUMIN 2.4 g/dL (3.4-5.0); BILIRUBIN - TOTAL 1.12 mg/dL (0.2-1.3); CARBON DIOXIDE 26.9 mmol/L (21.0-32.0); CREATININE - SERUM 9.3 mg/dL (0.6-1.3); PROTEIN - SERUM 6.1 g/dL (6.4-8.2)
[2018-04-13 06:11] LABS: PHOSPHOROUS 7.1 mg/dL (2.5-4.9); POTASSIUM - SERUM 3.9 mmol/L (3.5-5.1)
[2018-04-13 06:12] LABS: TROPONIN-I 2.882 ng/mL (0.000-0.060)
[2018-04-14] VITALS (23 sets, daily range): BP systolic 101–135; BP diastolic 65–95
[2018-04-14 04:26] LABS: BASOPHILS 0.1 % (0-2); EOSINOPHILS 0.1 % (0-7); HEMATOCRIT 32.8 % (42.0-54.0); IMMATURE GRANULOCYTES 0.4 % (0-5); LYMPHOCYTES 6.9 % (15-50); MCH 31.2 pg (26.0-34.0); MCHC 33.5 g/dL (31.0-37.0); MCV 92.9 fL (80.0-100.0); MEAN PLATELET VOLUME 11.1 fL (7.4-10.4); MONOCYTES 6.2 % (2-11); NEUTROPHILS 86.3 % (40-80); PLATELET COUNT 178 10x3/uL (130-400); RBC 3.53 10x6/uL (4.20-6.10); RDW 14.9 % (11.5-14.5)
[2018-04-14 04:32] LABS: WBC 10.2 10x3/uL (4.8-10.8)
[2018-04-14 04:43] LABS: ALBUMIN 2.5 g/dL (3.4-5.0); BILIRUBIN - TOTAL 1.56 mg/dL (0.2-1.3); CREATININE - SERUM 8.3 mg/dL (0.6-1.3); PHOSPHOROUS 6.6 mg/dL (2.5-4.9); VANCOMYCIN - RANDOM 7.4 ug/mL (10.0-20.0)
[2018-04-14 04:49] LABS: ANION GAP 16.6 mmol/L (8-16); POTASSIUM - SERUM 4.6 mmol/L (3.5-5.1)
[2018-04-15] VITALS (25 sets, daily range): BP systolic 103–128; BP diastolic 55–73
[2018-04-15 05:16] LABS: BASOPHILS 0.2 % (0-2); EOSINOPHILS 0.7 % (0-7); HEMATOCRIT 26.5 % (42.0-54.0); HEMOGLOBIN 8.8 g/dL (13.5-17.5); IMMATURE GRANULOCYTES 0.2 % (0-5); LYMPHOCYTES 8.7 % (15-50); MCH 30.9 pg (26.0-34.0); MCHC 33.2 g/dL (31.0-37.0); MEAN PLATELET VOLUME 12.3 fL (7.4-10.4); MONOCYTES 3.2 % (2-11); RBC 2.85 10x6/uL (4.20-6.10); RDW 15.1 % (11.5-14.5); WBC 9.2 10x3/uL (4.8-10.8)
[2018-04-15 05:22] LABS: PLATELET COUNT 101 10x3/uL (130-400)
[2018-04-15 05:43] LABS: ALBUMIN 1.9 g/dL (3.4-5.0); ANION GAP 14.8 mmol/L (8-16); BILIRUBIN - TOTAL 1.32 mg/dL (0.2-1.3); CALCIUM 7.6 mg/dL (8.5-10.1); CARBON DIOXIDE 30.6 mmol/L (21.0-32.0); CREATININE - SERUM 10.2 mg/dL (0.6-1.3); POTASSIUM - SERUM 4.4 mmol/L (3.5-5.1); VANCOMYCIN - RANDOM 19.6 ug/mL (10.0-20.0)
[2018-04-15 05:48] LABS: TROPONIN-I 1.675 ng/mL (0.000-0.060)
[2018-04-16] VITALS (21 sets, daily range): BP systolic 108–153; BP diastolic 57–84
[2018-04-16 05:59] LABS: BASOPHILS 0.1 % (0-2); EOSINOPHILS 1.9 % (0-7); HEMATOCRIT 28.1 % (42.0-54.0); HEMOGLOBIN 9.6 g/dL (13.5-17.5); IMMATURE GRANULOCYTES 0.9 % (0-5); LYMPHOCYTES 6.7 % (15-50); MCH 31.3 pg (26.0-34.0); MCHC 34.2 g/dL (31.0-37.0); MCV 91.5 fL (80.0-100.0); MEAN PLATELET VOLUME 11.6 fL (7.4-10.4); MONOCYTES 4.6 % (2-11); NEUTROPHILS 85.8 % (40-80); PLATELET COUNT 115 10x3/uL (130-400); RBC 3.07 10x6/uL (4.20-6.10); RDW 15.1 % (11.5-14.5)
[2018-04-16 06:33] LABS: BILIRUBIN - TOTAL 1.49 mg/dL (0.2-1.3); CALCIUM 7.9 mg/dL (8.5-10.1); CARBON DIOXIDE 28.1 mmol/L (21.0-32.0); CREATININE - SERUM 11.4 mg/dL (0.6-1.3); PHOSPHOROUS 7.2 mg/dL (2.5-4.9); VANCOMYCIN - RANDOM 18.3 ug/mL (10.0-20.0)
[2018-04-16 06:34] LABS: ANION GAP 19.3 mmol/L (8-16); POTASSIUM - SERUM 5.4 mmol/L (3.5-5.1)
[2018-04-16 11:21] LABS: ANA REFLEX - DIRECT Negative (Negative)
[2018-04-16 15:27] LABS: MAGNESIUM - SERUM 2.2 mg/dL (1.8-2.4); PHOSPHOROUS 5.9 mg/dL (2.5-4.9)
[2018-04-16 15:35] LABS: ALBUMIN 2.1 g/dL (3.4-5.0); ANION GAP 19.1 mmol/L (8-16); BILIRUBIN - TOTAL 1.46 mg/dL (0.2-1.3); CARBON DIOXIDE 27.3 mmol/L (21.0-32.0); CREATININE - SERUM 11.2 mg/dL (0.6-1.3); POTASSIUM - SERUM 5.4 mmol/L (3.5-5.1)
== END 2018-04-16 21:10 | DRG 314 ==
LOC: D.SDCHOLD 11:36 → D.M2 11:36 → D.ICU 11:36 → D.M2 13:11 → D.ICU 04-12 18:07
PROVIDERS: Anesthesiology; Internal Medicine Gastroenterology; Internal Medicine Nephrology; Radiology Diagnostic Radiology
PROC: 0W9G3ZZ Drainage of Peritoneal Cavity, Percutaneous Approach (ICD-10-PCS; principal; 2018-04-10 10:30)
PROC: 0DBP8ZZ Excision of Rectum, Via Natural or Artificial Opening Endoscopic (ICD-10-PCS; 2018-04-12)
PROC: 5A12012 Performance of Cardiac Output, Single, Manual (ICD-10-PCS; 2018-04-12)
PROC: 5A1955Z Respiratory Ventilation, Greater than 96 Consecutive Hours (ICD-10-PCS; 2018-04-12)
DX: T82.7XXA Infection and inflammatory reaction due to other cardiac and vascular devices, implants and grafts, initial encounter (principal); N18.6 End stage renal disease; J96.02 Acute respiratory failure with hypercapnia; J96.01 Acute respiratory failure with hypoxia; I50.33 Acute on chronic diastolic (congestive) heart failure; R18.8 Other ascites; I13.2 Hypertensive heart and chronic kidney disease with heart failure and with stage 5 chronic kidney disease, or end stage renal disease; G93.1 Anoxic brain damage, not elsewhere classified; I97.711 Intraoperative cardiac arrest during other surgery; I46.9 Cardiac arrest, cause unspecified; I25.10 Atherosclerotic heart disease of native coronary artery without angina pectoris; Z95.5 Presence of coronary angioplasty implant and graft; D63.1 Anemia in chronic kidney disease; K62.1 Rectal polyp; K64.8 Other hemorrhoids; R00.1 Bradycardia, unspecified; I95.9 Hypotension, unspecified; J44.9 Chronic obstructive pulmonary disease, unspecified